=== PATIENT | female | born 1950 | race Caucasian/White ===

== ENCOUNTER 2024-11-04 23:39 | Emergency (ER) | payer OTHER ==
[2024-11-05 00:05] VITALS: BMI 26.1
[2024-11-05 01:25] LABS: INR 1.12 (0.83-1.09); PROTHROMBIN TIME (PATIENT) 12.3 SEC (9.7-13.0)
[2024-11-05 01:27] LABS: ABSOLUTE IMMATURE GRANULOCYTES 0.02 x10^3/uL (0.0-0.031); BASOPHILS # 0.04 x10^3/uL (0.01-0.08); EOSINOPHIL % 1.7 % (0.7-5.8); EOSINOPHILS # 0.09 x10^3/uL (0.04-0.36); HEMATOCRIT 34.9 % (34.1-44.9); HEMOGLOBIN 11.5 g/dL (11.2-15.7); MEAN CELL VOLUME 93.6 fl (79.4-94.8); MONOCYTE # 0.54 x10^3/uL (0.24-0.86); MONOCYTE % 10.3 % (4.7-12.5); PLATELET COUNT 170 x10^3/uL (182-369); RDW 13.2 % (12.4-16.6)
[2024-11-05 01:28] LABS: ACTIVATED PTT 29.5 SECONDS (25.2-36.5)
[2024-11-05] MEDS ORDERED: FAMOTIDINE 20 MG/50 ML IVPB 20 MG/50 ML MG IVPB ONE (01:31)
[2024-11-05] MEDS ORDERED: MAG HYDROX/AL HYDROX/SIMETH 30 ML UNIT-DOSE CUP ONE (01:31)
[2024-11-05] MEDS: FAMOTIDINE 20 MG/50 ML IVPB 20 MG/50 ML MG IVPB ONE (01:36)
[2024-11-05] MEDS: MAG HYDROX/AL HYDROX/SIMETH 30 ML UNIT-DOSE CUP PO ONE (01:36)
[2024-11-05 01:49] LABS: ALBUMIN 3.4 g/dl (3.4-5.0); BLOOD UREA NITROGEN 25.7 mg/dL (7-18)
[2024-11-05 01:52] LABS: CREATININE 0.6 mg/dL (0.55-1.3)
[2024-11-05 01:54] LABS: BILIRUBIN,TOTAL 0.4 mg/dL (0.2-1); TOT PROT 6.3 g/dl (6.4-8.2)
[2024-11-05] MEDS: SODIUM CHLORIDE 0.9% 500 ML INFUS.BAG IV ONE (04:11)
[2024-11-05 04:21] VITALS: BP 136/58; PULSE 57; RESP 18; TEMP 97.5
[2024-11-05] MEDS ORDERED: ONDANSETRON 4 MG/2 ML VIAL ONE (09:00)
== END 2024-11-05 10:13 | disposition home or self-care (01) ==
LOC: JER 23:39
PROC: 3E033GC Introduction of Other Therapeutic Substance into Peripheral Vein, Percutaneous Approach (ICD-10-PCS; principal; 2024-11-05)
DX: K21.9 Gastro-esophageal reflux disease without esophagitis (principal); F41.9 Anxiety disorder, unspecified; I10 Essential (primary) hypertension; R42 Dizziness and giddiness; R07.2 Precordial pain
CPT/HCPCS: 0241U-QW; 36415; 71046-TC-FY; 80053; 84484; 85025; 85610; 85730; 93005; 93010; 96365; 99285-25

== ENCOUNTER 2024-11-21 16:35 | Emergency (ER) | payer OTHER ==
[2024-11-21 17:20] VITALS: BP 130/57; PULSE 57; RESP 18; TEMP 98.1; BMI 25.2
[2024-11-21] MEDS ORDERED: MAG HYDROX/AL HYDROX/SIMETH 30 ML UNIT-DOSE CUP ONE (17:50)
[2024-11-21] MEDS: MAG HYDROX/AL HYDROX/SIMETH 30 ML UNIT-DOSE CUP PO ONE (18:00)
== END 2024-11-21 19:33 | disposition home or self-care (01) ==
LOC: JER 16:35
DX: K60.0 Acute anal fissure (principal); K64.9 Unspecified hemorrhoids; K59.00 Constipation, unspecified; R07.0 Pain in throat; K62.5 Hemorrhage of anus and rectum
CPT/HCPCS: 99283-25